=== PATIENT | male | born 1990 | race Two or more races ===

== ENCOUNTER 2023-05-09 00:15 | Emergency (ER) | payer MEDICAID, OTHER ==
[~2023-05-09] VITALS: Ht 182.9 cm; Wt 72.7 kg
[2023-05-09] MEDS ORDERED: LORazepam 2MG/ML-1ML VIAL IV ONE (00:30)
[2023-05-09] MEDS ORDERED: HALOPERIDOL LACTATE 5 MG/ML INJ VIAL IM ONE (00:30)
[2023-05-09] MEDS ORDERED: diphenhdrAMINE HCL 50 MG/1 ML VL IV ONE (00:30)
[2023-05-09 01:01] LABS: Basophils % (auto) 0.3 % (0.0-2.0); Eosinophils # (auto) 0 10 ^3/uL (0-0.8); Hemoglobin 17.7 g/dL (13.5-17.5); Lymphocytes # (auto) 1.4 10 ^3/uL (0.4-5.4)
[2023-05-09 01:03] LABS: Basophils # (auto) 0 10 ^3/uL (0-0.2); Hematocrit 51.5 % (41.0-53.0); Lymphocytes % (auto) 8.9 % (10.0-50.0); Mean Corpuscular Hgb Conc. 34.4 g/dL (32.0-36.0); Mean Corpuscular Volume 89.9 fL (80.0-100.0); Monocytes # (auto) 1.4 10 ^3/uL (0-1.3); Monocytes % (auto) 8.6 % (0.0-12.0); Neutrophils # (auto) 13.2 10 ^3/uL (1.6-8.6); Neutrophils % (auto) 82.2 % (37.0-80.0); Nucleated Red Blood Cells % 0.2 %; Red Blood Cells 5.73 10^6/uL (4.5-5.90); Red Cell Distribution Width 13.7 % (11.8-14.3); White Blood Cell 16.1 10^3/uL (4.4-10.8)
[2023-05-09 01:18] LABS: Salicylate < 1.7 mg/dL (2.8-20.0)
[2023-05-09 01:19] LABS: Albumin 4.9 g/dL (3.4-5.0); Anion Gap 15 (5-15); BUN/Creatinine Ratio 11.7 (10.0-20.0); Blood Urea Nitrogen 44 mg/dL (7-18); Calcium 9.5 mg/dL (8.5-10.1); Carbon Dioxide 17 mmol/L (21-32); Chloride 104 mmol/L (98-107); GFR African American 24 mL/min; GFR Non-African American 20 mL/min; Glucose 122 mg/dL (74-106); Potassium 3.9 mmol/L (3.5-5.1); Sodium 136 mmol/L (136-145)
[2023-05-09 01:22] LABS: Alanine Aminotransferase 103 U/L (16-61); Alkaline Phosphatase 65 U/L (45-117); Aspartate Aminotransferase 351 U/L (15-37); Bilirubin, Total 2.4 mg/dL (0.2-1.0); Total Protein 9.3 g/dL (6.4-8.2)
[2023-05-09 01:23] LABS: Acetaminophen < 2.0 ug/mL (10-30)
[2023-05-09 01:24] LABS: Blood Alcohol < 3.0 mg/dL (<10)
[2023-05-09] MEDS ORDERED: TETANUS-DIPTH-ACEL PERTUSSIS 0.5ML SYR Tdap IM ONE (01:45)
[2023-05-09] MEDS ORDERED: ceFAZolin 1GM/50ML 50 ML IV ONE (01:45)
[2023-05-09] MEDS ORDERED: IOHEXOL 350 MG/ML 100ML IJ ONE (02:40)
[2023-05-09 09:00] VITALS: BP 122/79
== END 2023-05-09 14:24 | disposition home or self-care (01) ==
LOC: ER 00:15 → EDBD 00:15 → ER 14:24
DX: S51.812A Laceration without foreign body of left forearm, initial encounter (principal); R41.82 Altered mental status, unspecified; Y08.89XA Assault by other specified means, initial encounter; Y93.89 Activity, other specified; Y92.89 Other specified places as the place of occurrence of the external cause; Y99.8 Other external cause status
CPT/HCPCS: 12004; 36415; 70450; 71260; 72125; 74177; 80053; 80320; 80329; 84484; 85025; 90471; 90715; 96365; 96372; 96375; 99285; J0690; J1200; J1630; J2060; Q9967